=== PATIENT | female | born 2000 | race African-American/Black ===

== ENCOUNTER 2025-04-10 15:12 | Emergency (ER) | payer OTHER ==
[~2025-04-10] VITALS: Ht 160 cm; Wt 54.2 kg
[2025-04-10 15:24] VITALS: PULSE 98; RESP 18; TEMP 99.5; O2SAT 96
[2025-04-10] MEDS ORDERED: KETOROLAC TROME10 MG PO (16:52)
== END 2025-04-10 17:08 | disposition home or self-care (01) ==
LOC: FSED 15:16
DX: S01.111A Laceration without foreign body of right eyelid and periocular area, initial encounter (principal); R51.9 Headache, unspecified; W01.198A Fall on same level from slipping, tripping and stumbling with subsequent striking against other object, initial encounter; Y93.01 Activity, walking, marching and hiking; Y92.89 Other specified places as the place of occurrence of the external cause
CPT/HCPCS: 70450; 99284